=== PATIENT | female | born 1970 | race American Indian/Alaskan Native ===

== ENCOUNTER 2017-02-02 19:56 | Emergency (ER) | payer OTHER ==
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
[2017-02-03 02:02] VITALS: BP 145/81
[2017-02-03] MEDS ORDERED: TORADOL IM ONE (02:19)
[2017-02-03] MEDS ORDERED: FLEXERIL PO ONE (02:19)
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
== END 2017-02-03 03:15 | disposition home or self-care (01) ==
LOC: ED 19:56
DX: S16.1XXA Strain of muscle, fascia and tendon at neck level, initial encounter (principal); M54.12 Radiculopathy, cervical region; J45.909 Unspecified asthma, uncomplicated; V89.2XXA Person injured in unspecified motor-vehicle accident, traffic, initial encounter; Y93.89 Activity, other specified; Y92.89 Other specified places as the place of occurrence of the external cause; Y99.8 Other external cause status
CPT/HCPCS: 72125; 96372; 99284; J1885

== ENCOUNTER 2017-06-03 23:50 | Emergency (ER) | payer SELFPAY ==
[2017-06-04 01:24] LABS: Bacteria,Urine 4+ /HPF (Negative); Bilirubin,Urine NEG (Negative); Blood,Urine LG (Negative); Ketones,Urine NEG (Negative); Leukocyte Esterase,Urine SM (Negative); Mucus,Urine FEW /HPF; Nitrite,Urine NEG (Negative); Urobilinogen,Urine < 2.0 mg/dL (<2.0)
--- NOTE | 2017-06-04 02:24 | Emergency Department Report ---
ED Female HPI - General Chief complaint: Urogenital-Female Stated complaint: BLOOD IN URINE; ABD PAIN Time Seen by Provider: 06/04/17 01:42 Source: patient Mode of arrival: Ambulatory Limitations: No Limitations - History of Present Illness Initial comments: This is a 46-year-old female nontoxic, well nourished in appearance, no acute signs of distress presents to the ED with c/o of dysuria, polyuria, and hematuria x1 day. Patient denies any abdominal pain, back pain, nausea or pelvic pain, vomiting, headache, stiff neck, chest pain, shortness of breath, numbness or tingling. Patient states allergies to codeine. Past medical history includes asthma. MD Complaint: dysuria, other (polyuria, hematuria) -: days(s) (1) Radiation: non-radiating Severity: mild Severity scale (0 -10): 5 Quality: burning Consistency: constant Improves with: none Worsens with: urination Associated Symptoms: dysuria, hematuria. denies: vaginal discharge, vaginal bleeding, abdominal pain, nausea/vomiting, fever/chills, headaches, loss of appetite, rash, seizure, shortness of breath, syncope, weakness - Related Data Previous Rx's Medication Instructions Recorded Last Taken Type Cyclobenzaprine [Flexeril 10 MG 10 mg PO QHS #20 tablet 02/03/17 Unknown Rx TAB] HYDROcodone/APAP 5-325 [[place] 1 each PO Q6HR PRN #10 tablet 02/03/17 Unknown Rx 5-325 mg TAB] Ibuprofen [Motrin] 800 mg PO Q8HR PRN #30 tablet 02/03/17 Unknown Rx Sulfamethoxazole/Trimethoprim 1 each PO BID #14 tablet 06/04/17 Unknown Rx [Bactrim DS TAB] Allergies Allergy/AdvReac Type Severity Reaction Status Date / Time codeine Allergy Swelling Verified 02/22/13 00:28 ED Review of Systems ROS: Stated complaint: BLOOD IN URINE; ABD PAIN Other details as noted in HPI Constitutional: denies: chills, fever Eyes: denies: eye pain, eye discharge, vision change ENT: denies: ear pain, throat pain Respiratory: denies: cough, shortness of breath, wheezing Cardiovascular: denies: chest pain, palpitations Endocrine: no symptoms reported Gastrointestinal: denies: abdominal pain, nausea, diarrhea Genitourinary: urgency, dysuria, frequency, hematuria. denies: discharge Musculoskeletal: denies: back pain, joint swelling, arthralgia Skin: denies: rash, lesions Neurological: denies: headache, weakness, paresthesias Psychiatric: denies: anxiety, depression Hematological/Lymphatic: denies: easy bleeding, easy bruising ED Past Medical Hx - Past Medical History Hx Asthma: Yes - Surgical History Additional Surgical History: hysterectomy - Social History Smoking Status: Never Smoker Substance Use Type: None - Medications Home Medications: Home Medications Medication Instructions Recorded Confirmed Last Taken Type Cyclobenzaprine [Flexeril 10 MG 10 mg PO QHS #20 tablet 02/03/17 Unknown Rx TAB] HYDROcodone/APAP 5-325 [[place] 1 each PO Q6HR PRN #10 tablet 02/03/17 Unknown Rx 5-325 mg TAB] Ibuprofen [Motrin] 800 mg PO Q8HR PRN #30 tablet 02/03/17 Unknown Rx Sulfamethoxazole/Trimethoprim 1 each PO BID #14 tablet 06/04/17 Unknown Rx [Bactrim DS TAB] ED Physical Exam - General Limitations: No Limitations General appearance: alert, in no apparent distress - Head Head exam: Present: atraumatic, normocephalic - Eye Eye exam: Present: normal appearance. Absent: PERRL, EOMI Pupils: Present: normal accommodation - ENT ENT exam: Present: normal exam, normal orophraynx, mucous membranes moist, TM's normal bilaterally, normal external ear exam - Neck Neck exam: Present: normal inspection, full ROM. Absent: tenderness, meningismus, lymphadenopathy, thyromegaly - Respiratory Respiratory exam: Present: normal lung sounds bilaterally. Absent: respiratory distress, wheezes, rales, rhonchi, stridor, chest wall tenderness, accessory muscle use, decreased breath sounds, prolonged expiratory - Cardiovascular Cardiovascular Exam: Present: regular rate, normal rhythm, normal heart sounds. Absent: irregular rhythm, systolic murmur, diastolic murmur, rubs, gallop - GI/Abdominal GI/Abdominal exam: Present: soft, normal bowel sounds. Absent: distended, tenderness, guarding, rebound, rigid, diminished bowel sounds - Rectal Rectal exam: Present: deferred - Extremities Exam Extremities exam: Present: normal inspection, full ROM, normal capillary refill. Absent: tenderness, pedal edema, joint swelling, calf tenderness - Back Exam Back exam: Present: normal inspection, full ROM. Absent: tenderness, CVA tenderness (R), CVA tenderness (L), muscle spasm, paraspinal tenderness, vertebral tenderness, rash noted - Neurological Exam Neurological exam: Present: alert, oriented X3, CN II-XII intact, normal gait, reflexes normal - Psychiatric Psychiatric exam: Present: normal affect, normal mood - Skin Skin exam: Present: warm, dry, intact, normal color. Absent: rash ED Course Vital Signs 06/04/17 00:45 Temperature 98.9 F Pulse Rate 92 H Blood Pressure 148/100 O2 Sat by Pulse 100 Oximetry - Reevaluation(s) Reevaluation #1: 06/04/17 02:25 Patient is speaking in full sentences with no signs of distress noted. ED Medical Decision Making - Medical Decision Making This is a 46-year-old female that presents with urinary tract infection. Patient is stable and was examined by me. UA obtained with elevated WBCs, RBCs and leukocytes. Patient received Bactrim at discharge. There is no CVA tenderness. Patient was instructed Follow-up with a primary care doctor in 3-5 days or if symptoms worsen and continue return to emergency room as soon as possible. At time time of discharge, the patient does not seem toxic or ill in appearance. No acute signs of distress noted. Patient agrees to discharge treatment plan of care. No further questions noted by the patient. Critical care attestation.: If time is entered above; I have spent that time in minutes in the direct care of this critically ill patient, excluding procedure time. ED Disposition Clinical Impression: UTI (urinary tract infection) Qualifiers: Urinary tract infection type: site unspecified Hematuria presence: with hematuria Qualified Code(s): N39.0 - Urinary tract infection, site not specified ; R31.9 - Hematuria, unspecified; R31.9 - Hematuria, unspecified Disposition: DC-01 TO HOME OR SELFCARE Is pt being admited?: No Does the pt Need Aspirin: No Condition: Stable Instructions: Urinary Tract Infection in Women (ED), Sulfamethoxazole/ Trimethoprim (By mouth) Additional Instructions: Follow-up with a primary care doctor in 3-5 days or if symptoms worsen and continue return to emergency room as soon as possible. Prescriptions: Sulfamethoxazole/Trimethoprim [Bactrim DS TAB] 1 each PO BID #14 tablet Referrals: PRIMARY CARE, [Primary Care Provider] - 3-5 Days SASHA VIDES MD [Staff Physician] - 3-[address] [facility] [place] [Outside] - 3-5 Days [facility] [Outside] - 3-5 Days Forms: Work/School Release Form(ED)
[2017-06-04 02:27] VITALS: BP 134/86
== END 2017-06-04 02:30 | disposition home or self-care (01) ==
LOC: ED 23:50
DX: N39.0 Urinary tract infection, site not specified (principal); Z88.6 Allergy status to analgesic agent
CPT/HCPCS: 81001; 99283

== ENCOUNTER 2017-10-12 20:24 | Emergency (ER) | payer SELFPAY ==
[2017-10-12 20:59] VITALS: BP 146/93
[2017-10-12] MEDS ORDERED: ASPIRIN PO ONE (20:59)
[2017-10-12 21:29] LABS: Basophils # (Auto) 0.1 K/mm3 (0.0-0.1); Basophils % (Auto) 0.6 % (0.0-1.8); Eosinophils # (Auto) 0.1 K/mm3 (0.0-0.4); Eosinophils % (Auto) 1.2 % (0.0-4.3); Hematocrit 39.8 % (30.3-42.9); Hemoglobin 12.8 gm/dl (10.1-14.3); Lymphocytes # (Auto) 3.8 K/mm3 (1.2-5.4); Lymphocytes % (Auto) 38.5 % (13.4-35.0); Mean Corpuscular HGB Conc 32 % (30-34); Mean Corpuscular Hemoglobin 28 pg (28-32); Mean Corpuscular Volume 88 fl (79-97); Monocytes # (Auto) 0.8 K/mm3 (0.0-0.8); Monocytes % (Auto) 8.2 % (0.0-7.3); Platelet Count 257 K/mm3 (140-440); Red Cell Distribution Width 13.7 % (13.2-15.2)
[2017-10-12 21:41] LABS: BUN/Creatinine Ratio 13; Blood Urea Nitrogen 10 mg/dL (7-17); Calcium 9.2 mg/dL (8.4-10.2); Hemolysis Index 6
--- NOTE | 2017-10-12 22:20 | XRay Report ---
FINAL REPORT PROCEDURE: XR CHEST ROUTINE 2V TECHNIQUE: PA and lateral chest radiographs were obtained. CPT 79643 HISTORY: Shortness of breath COMPARISON: No prior studies are available for comparison. FINDINGS: Heart: Normal. Mediastinum/Vessels: Normal. Lungs/Pleural space: No infiltrate, effusion, or pneumothorax. Bony thorax: No acute osseous abnormality. Other: IMPRESSION: No pulmonary infiltrates are identified.
[2017-10-12 22:21] LABS: Bacteria,Urine 1+ /HPF (Negative); Bilirubin,Urine NEG (Negative); Blood,Urine NEG (Negative); Color,Urine Yellow (Yellow); Mucus,Urine 3+ /HPF
[2017-10-13] MEDS ORDERED: NACL ONE (18:41)
== END 2017-10-13 06:05 | disposition left against medical advice (07) ==
LOC: ED 20:24
DX: R07.9 Chest pain, unspecified (principal); R06.02 Shortness of breath; Z53.21 Procedure and treatment not carried out due to patient leaving prior to being seen by health care provider
CPT/HCPCS: 36415; 71046; 80048; 81001; 82962; 84484; 85025; 93005; 93010

== ENCOUNTER 2017-10-13 14:25 | Inpatient (IN) | payer OTHER ==
--- NOTE | 2017-10-13 17:54 | Emergency Department Report ---
ED Chest Pain HPI - General Chief Complaint: Medical Clearance Stated Complaint: FOLLOW UP Time Seen by Provider: 10/13/17 17:40 Source: patient Mode of arrival: Ambulatory Limitations: No Limitations - History of Present Illness Initial Comments: 46-year-old female presents to the hospital with multiple complaints including chest pain, muscle aches, headache, and increased urinary frequency. Patient feels like she is urinating are not but denies dysuria or hematuria. Complaint #1: Chest pain Patient complains of intermittent mid chest pain 1 week described as a tightness. Rate 8/10 in intensity. No aggravating or alleviating factors. My associate shortness of breath. Patient denies recent travel. Patient has elevated blood pressure at least since June but has never been on medication. Her mother had an IL in her 40s. Patient not smoke cigarettes. Positive family history of hypertension. No PMD Complaint #2: generalized muscle aches Patient had an intermittent muscle aches and tenderness. Lower extremities and can palpate tender nodules on the skin surface. No fever or warmth reported. Patient has intermittent swelling of her lower extremities and feet. Complaint #3: Headache Ongoing frontal headache and bitemporal headache times one year. Recent blurred vision for the past one week. No focal numbness or weakness reported. No local rigidity. Patient was here yesterday and had EKG, 3 negative troponins, CBC, BMP, and UA performed. Also neg CXR. She left prior to being evaluated by PMD. Severity scale (0 -10): 0 - Related Data Previous Rx's Medication Instructions Recorded Last Taken Type Cyclobenzaprine [Flexeril 10 MG 10 mg PO QHS #20 tablet 02/03/17 Unknown Rx TAB] HYDROcodone/APAP 5-325 [Speed 1 each PO Q6HR PRN #10 tablet 02/03/17 Unknown Rx 5-325 mg TAB] Ibuprofen [Motrin] 800 mg PO Q8HR PRN #30 tablet 02/03/17 Unknown Rx Sulfamethoxazole/Trimethoprim 1 each PO BID #14 tablet 06/04/17 Unknown Rx [Bactrim DS TAB] Allergies Allergy/AdvReac Type Severity Reaction Status Date / Time codeine Allergy Swelling Verified 02/22/13 00:28 Heart Score - HEART Score History: Slightly suspicious EKG: Non-specific Age: 45-65 Risk factors: 1-2 risk factors Troponin: < normal limit HEART Score: 3 ED Review of Systems ROS: Stated complaint: FOLLOW UP Other details as noted in HPI Comment: All other systems reviewed and negative ED Past Medical Hx - Past Medical History Previous Medical History?: Yes Hx Hypertension: Yes (no meds) Hx Asthma: Yes - Surgical History Past Surgical History?: Yes Additional Surgical History: hysterectomy - Social History Smoking Status: Never Smoker Substance Use Type: None - Medications Home Medications: Home Medications Medication Instructions Recorded Confirmed Last Taken Type Cyclobenzaprine [Flexeril 10 MG 10 mg PO QHS #20 tablet 02/03/17 Unknown Rx TAB] HYDROcodone/APAP 5-325 [Speed 1 each PO Q6HR PRN #10 tablet 02/03/17 Unknown Rx 5-325 mg TAB] Ibuprofen [Motrin] 800 mg PO Q8HR PRN #30 tablet 02/03/17 Unknown Rx Sulfamethoxazole/Trimethoprim 1 each PO BID #14 tablet 06/04/17 Unknown Rx [Bactrim DS TAB] ED Physical Exam - General Limitations: No Limitations - Other Other exam information: General: No limitations, patient is alert in no acute distress Head exam: Atraumatic, normocephalic Eyes exam: Normal appearance, pupils equal reactive to light, extraocular movements intact ENT: Moist mucous membrane, normal oropharynx Neck exam: Normal inspection, full range of motion, no meningismus nontender Respiratory exam: Clear to auscultation bilateral, no wheezes, rales, crackles. Upper to mid sternal tenderness to palpation states different from previous chest tightness. Cardiovascular: Normal rate and rhythm, normal heart sounds Abdomen: Soft, nondistended, and nontender, with normal bowel sounds, no rebound, or guarding Extremity: Full range of motion normal inspection no deformity, generalized muscle tenderness without warmth, erythema, or edema Back: Normal Inspection, full range of motion, no tenderness Neurologic: Alert, oriented x3, cranial nerves intact, no motor or sensory deficit Psychiatric: normal affect, normal mood Skin: Warm, dry, intact ED Course Vital Signs 10/13/17 10/13/17 10/13/17 14:31 17:14 18:52 Temperature 98.2 F Pulse Rate 85 88 65 Respiratory 20 20 18 Rate Blood Pressure 142/100 141/89 Blood Pressure 171/97 [Right] O2 Sat by Pulse 99 98 Oximetry 10/13/17 10/13/17 10/13/17 19:20 20:23 22:12 Temperature Pulse Rate 85 69 Respiratory 18 17 Rate Blood Pressure 165/101 Blood Pressure [Right] O2 Sat by Pulse 98 97 Oximetry 10/13/17 10/13/17 10/13/17 22:15 22:30 22:40 Temperature Pulse Rate 70 69 75 Respiratory 15 14 14 Rate Blood Pressure 135/72 125/72 125/72 Blood Pressure [Right] O2 Sat by Pulse 97 96 96 Oximetry 10/13/17 22:50 Temperature Pulse Rate 72 Respiratory 14 Rate Blood Pressure 124/72 Blood Pressure [Right] O2 Sat by Pulse 98 Oximetry KEVIN score - Kevin Score Age > 65: (0) No Aspirin use within the Past 7 Days: (0) No 3 or more CAD Risk Factors: (0) No 2 or more Angina events in past 24 hrs: (1) Yes Known CAD with more than 50% Stenosis: (0) No Elevated Cardiac Markers: (0) No ST Deviation Greater than 0.5mm: (0) No KEVIN Score: 1 ED Medical Decision Making - Lab Data Lab Results 10/13/17 10/13/17 10/13/17 Range/Units 17:52 17:52 17:57 D-Dimer 399.88 H (0-234) ng/mlDDU Total Creatine Kinase 210 H (30-135) units/L CK-MB (CK-2) 1.9 (0.0-4.0) ng/mL CK-MB (CK-2) Rel Index 0.9 (0-4) Troponin T < 0.010 (0.00-0.029) ng/mL HCG, Qual Negative (Negative) - EKG Data -: EKG Interpreted by Ut EKG shows normal: sinus rhythm, axis (62), QRS complexes (91), ST-T waves (lvh) Rate: normal - EKG Data When compared to previous EKG there are: no significant change - Radiology Data Radiology results: report reviewed (cxr 10/12/17 naf read by radiologist) cta chest IMPRESSION: No emboli are seen within proximal pulmonary arterial branches. Limited evaluation of distal most pulmonary arteries ct head IMPRESSION: No CT evidence of acute abnormality - Medical Decision Making Patient has elevated blood pressure, obesity, chest pain, and a positive family history. Lipids are unknown at this time. EKG suggestive of LVH. Patient will be admitted to the hospital for stress testing. Patient also has muscular pain and arthralgias which could represent some immunological/rheumatoid disorder. no acute lab abnormality (except elevated ddimer) - Differential Diagnosis mi, unstable angina, costochondritis, htn, ich, brain mass Critical Care Time: No Critical care attestation.: If time is entered above; I have spent that time in minutes in the direct care of this critically ill patient, excluding procedure time. ED Disposition Clinical Impression: HTN (hypertension), Chest pain, Headache, Myalgia Disposition: OP ADMIT IP TO THIS HOSP Is pt being admited?: Yes Condition: Stable Time of Disposition: 20:00 (hospitalist to admit/cruz)
[2017-10-13 18:27] LABS: Creatine Kinase MB 1.9 ng/mL (0.0-4.0)
[2017-10-13] MEDS ORDERED: CATAPRES PO ONE (20:11)
--- NOTE | 2017-10-13 20:36 | Cat Scan Report ---
FINAL REPORT PROCEDURE: CT HEAD/BRAIN WO CON TECHNIQUE: Computerized tomography of the head was performed without contrast material. HISTORY: Headache, blurred vision COMPARISON: No prior studies are available for comparison. FINDINGS: Focal sub centimeter low-density lesion in the left basal ganglia, compatible with lacunar infarct, which may be chronic. There is no CT evidence of intracranial mass, hemorrhage, acute territorial infarction, or hydrocephalus. The intracranial arteries are symmetric in density. Calvarium is intact. Visualized paranasal sinuses and mastoids are aerated. IMPRESSION: No CT evidence of acute abnormality
--- NOTE | 2017-10-13 20:42 | Cat Scan Report ---
FINAL REPORT PROCEDURE: CT ANGIO CHEST TECHNIQUE: Computerized tomographic angiography of the chest was performed after the IV injection of iodinated nonionic contrast including image processing. The image data was postprocessed using 2-dimensional multiplanar reformatted (MPR) and 3-dimensional (MIP and/or volume rendered) techniques. HISTORY: Chest pain, elevated ddimer COMPARISON: No prior studies are available for comparison. FINDINGS: Heart and pericardium: No pericardial effusion or thickening. Thoracic aorta: No aneurysm or dissection. Pulmonary vasculature: Limited evaluation of distal most pulmonary arteries due to suboptimal contrast enhancement. No emboli are seen within proximal pulmonary arterial branches. Lymph nodes: No enlarged thoracic lymph nodes. Lungs: Normal. Pleural space: No effusion, thickening, or pneumothorax. Musculoskeletal structures: No significant abnormality. Upper abdominal structures: 8 millimeter low-density lesion in the left anterior hepatic lobe, too small to characterize, but likely a cyst. IMPRESSION: No emboli are seen within proximal pulmonary arterial branches. Limited evaluation of distal most pulmonary arteries
[2017-10-13] MEDS ORDERED: ZOFRAN IV PRN (21:59)
[2017-10-13] MEDS ORDERED: TYLENOL PO PRN (21:59)
[2017-10-13] MEDS ORDERED: SODIUM CHLORIDE FLUSH SYRINGE 10 ML IV PRN (21:59)
[2017-10-13] MEDS ORDERED: NITROSTAT SL PRN (22:01)
[2017-10-13] MEDS: SODIUM CHLORIDE FLUSH SYRINGE 10 ML IV SCH (22:10)
--- NOTE | 2017-10-13 22:17 | History and Physical Report ---
History of Present Illness Date of examination: 10/13/17 Chief complaint: Chest pain History of present illness: Patient is a 46 year old -[place] female with medical history significant for hypertension on no medication, who presented to the ED an account of 2 days history of midsternal chest pain. She described it as rated 8/ 10 and nonradiating. The pain waxes and wanes. No known aggravating or relieving factors. She has associated shortness of breath, palpitation, generalized body aches, headaches, dizziness and blurry vision. She denies diaphoresis, fever or chills, cough, leg swelling, orthopnea, PND, nausea or vomiting, syncope or loss of consciousness. No reported history of previous stress test. Patient visited the ER yesterday during which all the labs done, including serial troponin levels 3 were negative. However, she came back to the ER today because of recurrent chest pain. Past History Past Medical History: hypertension, other (asthma) Past Surgical History: hysterectomy (partial), Other (hemorrhoidectomy) Social history: other (patient denies tobacco, alcohol or illicit drug use.) Family history: other (no known family history of sudden cardiac or heart attack) Medications and Allergies Allergies Allergy/AdvReac Type Severity Reaction Status Date / Time codeine Allergy Swelling Verified 02/22/13 00:28 Home Medications Medication Instructions Recorded Confirmed Last Taken Type Cyclobenzaprine [Flexeril 10 MG 10 mg PO QHS #20 tablet 02/03/17 Unknown Rx TAB] HYDROcodone/APAP 5-325 [Milo 1 each PO Q6HR PRN #10 tablet 02/03/17 Unknown Rx 5-325 mg TAB] Ibuprofen [Motrin] 800 mg PO Q8HR PRN #30 tablet 02/03/17 Unknown Rx Sulfamethoxazole/Trimethoprim 1 each PO BID #14 tablet 06/04/17 Unknown Rx [Bactrim DS TAB] Active Meds: Active Medications Acetaminophen (Tylenol) 650 mg PO Q4H PRN PRN Reason: Pain MILD(1-3)/Fever >100.5/[place] Amlodipine Besylate (Norvasc) 10 mg PO DAILY R[place] Sodium Chloride (Nacl 0.45% 1000 Ml) 1,000 mls @ 75 mls/hr IV DIRECT R[place] Metoprolol Tartrate (Lopressor) 25 mg PO BID [place] Nitroglycerin (Nitrostat) 0.4 mg SL .Q5MIN PRN PRN Reason: Chest Pain Ondansetron HCl (Zofran) 4 mg IV Q8H PRN PRN Reason: Nausea And Vomiting Sodium Chloride (Sodium Chloride Flush Syringe 10 Ml) 10 ml IV BID R[place]ET[place] Sodium Chloride (Sodium Chloride Flush Syringe 10 Ml) 10 ml IV PRN PRN PRN Reason: LINE FLUSH Review of Systems All systems: negative (Except as documented in the HPI, all other systems were reviewed and negative) Exam - Constitutional Vitals: Temp Pulse Resp BP Pulse Ox 98.2 F 85 18 165/101 98 10/13/17 14:31 10/13/17 20:23 10/13/17 19:20 10/13/17 20:23 10/13/17 19:20 General appearance: Present: no acute distress, well-nourished - EENT Eyes: Present: PERRL, EOM intact ENT: hearing intact, clear oral mucosa - Neck Neck: Present: supple, normal ROM - Respiratory Respiratory effort: normal, other (chest pain is reproducible) Respiratory: bilateral: CTA - Cardiovascular Rhythm: regular Heart Sounds: Present: S1 & S2. Absent: rub, click - Extremities Extremities: pulses symmetrical, No edema Peripheral Pulses: within normal limits - Abdominal General gastrointestinal: Present: soft, non-tender, non-distended, normal bowel sounds - Integumentary Integumentary: Present: clear, warm, dry - Musculoskeletal Musculoskeletal: gait normal, strength equal bilaterally - Psychiatric Psychiatric: appropriate mood/affect - Neurologic Neurologic: CNII-XII intact, moves all extremities Results - Labs Labs: Laboratory Last Values D-Dimer 399.88 ng/mlDDU (0-234) H 10/13/17 17:52 Total Creatine Kinase 210 units/L (30-135) H 10/13/17 17:52 CK-MB (CK-2) 1.9 ng/mL (0.0-4.0) 10/13/17 17:52 CK-MB (CK-2) Rel Index 0.9 (0-4) 10/13/17 17:52 Troponin T < 0.010 ng/mL (0.00-0.029) 10/13/17 17:52 HCG, Qual Negative (Negative) 10/13/17 17:57 Assessment and Plan Assessment and plan: Chest pain, probably secondary to costochondritis since her chest pain is reproducible -Patient had serial troponin levels 3 done yesterday which were negative -Will monitor her on telemetry and start anti-inflammatory agent with ibuprofen -Will do further evaluation with nuclear stress test Hypertensive urgency -Will place patient on both scheduled and when necessary antihypertensives Elevated d-dimer -CTA chest is negative for PE Prophylaxis -DVT prophylaxis with SCD Disposition: for discharge if stress test is negative 35 minutes spent coordinating care
[2017-10-13] MEDS: NORVASC PO SCH (22:30)
[2017-10-13] MEDS ORDERED: APRESOLINE IV PRN (22:31)
[2017-10-13] MEDS ORDERED: NACL 0.45% 1000 ML 1,000 ML IV SCH (23:00)
[2017-10-13] MEDS ORDERED: MOTRIN PO PRN (23:00)
[2017-10-14] MEDS: LOPRESSOR PO SCH ×2 (00:24→11:15)
[2017-10-14 06:23] LABS: Chol/HDL Ratio 2.77 %
[2017-10-14] MEDS ORDERED: LEXISCAN IV ONE (08:37)
[2017-10-14] MEDS ORDERED: BABY ASPIRIN PO SCH (10:00)
[2017-10-14] MEDS: NORVASC PO SCH (11:16)
[2017-10-14] MEDS: SODIUM CHLORIDE FLUSH SYRINGE 10 ML IV SCH (11:17)
--- NOTE | 2017-10-14 15:46 | Discharge Summary ---
Providers - Providers Date of Admission: 10/13/17 22:00 Date of discharge: 10/14/17 Attending physician: DAKOTA DOMINGUEZ Primary care physician: CROWNING [employer] OPERATOR Hospitalization Reason for admission: chest pain, uncontrolled blood pressures Condition: Stable Pertinent studies: CTA chest; no PE CT head; no acute abnormality noted Stress test; normal study Hospital course: 46-year-old obese -[place] female patient was admitted through emergency room with chest pain and uncontrolled blood pressures Patient was evaluated and admitted to the hospital, symptomatically managed, had elevated D dimers, negative for PE on CT chest, CT head without contrast normal study Patient had serial cardiac enzymes which were negative However in view of risk factors patient underwent nuclear stress test which is within normal limits per preliminary report per cardiology Patient's blood pressures closely monitored medications optimized Counseling done patient strongly advised diet modification and exercise as tolerated and weight reduction when medically stable Patient also counseled to adhere to the treatment, diet and follow-up visits. 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 as outpatient for further evaluation and management Patient is hemodynamically and clinically stable at discharge Discharge diagnosis; Atypical chest pain; noncardiac probably secondary to costochondritis Negative stress test Accelerated hypertension; Obesity Medical noncompliance Disposition: DC-01 TO HOME OR SELFCARE Time spent for discharge: 31 min Core Measure Documentation - Palliative Care Palliative Care/ Comfort Measures: Not Applicable - Core Measures Any of the following diagnoses?: none Exam - Constitutional Vitals: Temp Pulse Resp BP Pulse Ox 98.3 F 77 16 114/75 97 10/14/17 07:29 10/14/17 11:16 10/14/17 07:29 10/14/17 11:16 10/14/17 07:29 General appearance: Present: no acute distress, well-nourished, obese - EENT Eyes: Present: PERRL, EOM intact - Neck Neck: Present: supple, normal ROM - Respiratory Respiratory effort: normal Respiratory: negative: rales, rhonchi, wheezing - Cardiovascular Rhythm: regular Heart Sounds: Present: S1 & S2 - Extremities Extremities: no ischemia, No edema Peripheral Pulses: within normal limits - Abdominal General gastrointestinal: Present: soft, non-tender, non-distended, normal bowel sounds - Integumentary Integumentary: Present: clear, warm - Musculoskeletal Musculoskeletal: strength equal bilaterally - Psychiatric Psychiatric: appropriate mood/affect, cooperative - Neurologic Neurologic: CNII-XII intact, other Plan Activity: no restrictions Diet: low salt Additional Instructions: Diet modification, exercise as tolerated and weight reduction when medically stable. Follow-up primary care physician in one week Follow up with: PRIMARY CARE, [Primary Care Provider] - 3-5 Days Prescriptions: amLODIPine [Norvasc] 10 mg PO DAILY #30 tablet Metoprolol [Lopressor TAB] 25 mg PO BID #60 tablet
[2017-10-14 17:32] VITALS: BP 92/47
--- NOTE | 2017-10-15 11:46 | Treadmill Report ---
THALLIUM STRESS TEST LEFT VENTRICLE: Left ventricular chamber size is within normal spread. Perfusion study demonstrates evidence of breast attenuation artifact, otherwise homogeneous uptake of the tracer in all segments, no significant perfusion defects identified. Gated analysis demonstrates normal left ventricular systolic function, ejection fraction of 71%. CONCLUSION: Suboptimal study with no demonstrable ischemic coronary disease. Clinical correlation is recommended. JOB# [id number] CA/NTS
== END 2017-10-14 18:29 | disposition home or self-care (01) | DRG 206 ==
LOC: ED 14:25 → 3A 22:00
PROVIDERS: ADMIT Internal Medicine; ATTEND Internal Medicine
DX: M94.0 Chondrocostal junction syndrome [Tietze] (principal); I10 Essential (primary) hypertension; E11.9 Type 2 diabetes mellitus without complications; I16.0 Hypertensive urgency; M79.1 Myalgia; Z68.34 Body mass index [BMI] 34.0-34.9, adult; Z91.14 Patient's other noncompliance with medication regimen; Z90.710 Acquired absence of both cervix and uterus; Z88.5 Allergy status to narcotic agent; Z79.899 Other long term (current) drug therapy
CPT/HCPCS: 36415; 70450; 71275; 78452; 80061; 82550; 82553; 83735; 84484; 84703; 85379; 93005; 93010; 93017; A9502; J2785; Q9967